=== PATIENT | female | born 1980 | race Caucasian/White ===

== ENCOUNTER 2018-12-08 13:57 | Day surgery (SDC) | payer BC, OTHER ==
[2018-12-01 13:09] VITALS: BMI 23.6
[~2018-12-08 13:57] MED LIST: BUPIVACAINE HCL/PF 2.5 MG/ML - 30 ML VIAL IJ ONE; BUPIVACAINE LIPOSOME/PF (EXPAREL) 266 MG/20 ML VIAL ONE; DEXAMETHASONE SOD PHOSPHATE 4 MG/1 ML VIAL ONE; EPINEPHrine/PF 1 MG/1 ML (1:1,000) AMPULE ONE; GLYCOPYRROLATE 0.2 MG/1 ML VIAL ONE; HEPARIN NA (PORCINE) 5,000 UNITS/ML 1ML VIAL ONE; HEPARIN NA (PORCINE) 5,000 UNITS/ML 1ML VIAL SQ ONE; HYDROmorphone HCL CARPU-JECT 2 MG/1 ML DISP.SYRIN IVPB PRN; HYDROmorphone HCL/PF 1 MG/ML AMP ONE; LIDOCAINE HCL/PF 2% SDV 5ML VIAL ONE; MIDAZOLAM HCL 2 MG/2 ML SINGLE DOSE VIAL ONE; NEOSTIGMINE METHYLSULFATE 0.5 MG/ML - 10 ML MDV ONE; ONDANSETRON 4 MG/2 ML VIAL ONE; PROMETHAZINE HCL 25 MG/1 ML VIAL IVPUSH PRN; PROPOFOL 20 ML ONE; ROCURONIUM BROMIDE 50 MG/5 ML VIAL ONE; ceFAZolin SODIUM 1 GM VIAL ONE; fentaNYL CITRATE 250 MCG/5 ML VIAL ONE; morphine SULFATE 4 MG/ML VIAL IVPUSH PRN
[2018-12-08] MEDS ORDERED: CYCLOBENZAPRINE HCL 5 MG TABLET PO PRN (14:00)
[2018-12-08] MEDS ORDERED: LACTATED RINGERS SOLUTION 1,000 ML IV SCH ×2 (14:00)
--- NOTE | 2018-12-08 14:02 | OP ---
Operative Note - Note: Operative Date: 12/08/18 Pre-Operative Diagnosis: abdominal deformity with hernia Operation: abdominoplasty with umbilical hernia repair Findings: umbilical hernia Post-Operative Diagnosis: Same as Pre-op Surgeon: Jim Rodriguez [employer] Supervisor: Ady Allen Anesthesia: General Operative Report Dictated: Yes
[2018-12-08] MEDS ORDERED: HYDROmorphone HCL 0.5 MG/0.5 ML SYRINGE ONE (14:23)
[2018-12-08] MEDS ORDERED: PROMETHAZINE HCL 25 MG/1 ML VIAL ONE (14:55)
[2018-12-08] MEDS: oxyCODONE HCL 5 MG TABLET PO PRN ×2 (18:40→22:24)
[2018-12-08] MEDS: CEFAZOLIN 1 GM/D5W 1 GM/50 ML BAG IVPB SCH (18:54)
[2018-12-08] MEDS: ONDANSETRON 4 MG/2 ML VIAL IVPB PRN (21:02)
[2018-12-09] MEDS: CEFAZOLIN 1 GM/D5W 1 GM/50 ML BAG IVPB SCH ×2 (02:11→09:52)
[2018-12-09] MEDS: oxyCODONE HCL 5 MG TABLET PO PRN ×3 (02:17→09:52)
[2018-12-09 07:13] VITALS: BP 108/62; PULSE 80; TEMP 98.5
--- NOTE | 2018-12-09 07:34 | PN ---
Progress Note (short form) - Note Progress Note: all ts viable, NANCY thin and functioning, using IS, VSS AF, ambulating, ag PO, urinating, pain well controlled OK for discharge
[2018-12-09] MEDS ORDERED: HEPARIN NA (PORCINE) 5,000 UNITS/ML 1ML VIAL SQ SCH (08:00)
[2018-12-09] MEDS ORDERED: SPIRONOLACTONE 25 MG TABLET (FP) PO SCH (10:00)
--- NOTE | 2018-12-09 10:18 | OP ---
Operative Note - Note: Operative Date: 12/08/18 Pre-Operative Diagnosis: umbilical hernia Operation: repair umbilical hernia Findings: 1.5 cm. defect at the umbilicus Post-Operative Diagnosis: Same as Pre-op Surgeon: Ady Allen Human Resources Benefits Manager: Jim Rodriguez Anesthesiologist/SCOURING PADS SUPERVISOR: Sami Vaughn Anesthesia: General Specimens Removed: none Estimated Blood Loss (mls): 0
[2018-12-09] MEDS: ONDANSETRON 4 MG/2 ML VIAL IVPB PRN (10:23)
--- NOTE | 2018-12-10 10:00 | OP ---
DATE OF OPERATION: 12/08/2018 TITLE OF PROCEDURE: Abdominoplasty with bilateral flank liposuction. ATTENDING SURGEON: Jim Jiménez MD SENIOR ADVOCATE: Ady Allen MD It should be noted that a separate procedure, an umbilical hernia was performed by Dr. Ady Allen. It will be dictated separately by him. PREOPERATIVE DIAGNOSIS: Abdominal deformity with severe diastasis recti. . POSTOPERATIVE DIAGNOSIS: Abdominal deformity with severe diastasis recti. ANESTHESIA: General endotracheal anesthesia. DESCRIPTION OF PROCEDURE: The patient was given 5000 units of subcutaneous heparin in the holding area. All risks, benefits, and alternatives as well as limitations of the operation were discussed at length. Patient understands and agreed to proceed. She was marked in a standing position awake and aware of all incisions and resulting scars. The patient was given MICAH hose and sequential compression stockings as well as 5000 units of subcutaneous heparin. She was brought to the operating room and placed in the supine position. Her position was carefully checked by surgical and anesthesia teams, and all appropriate padding was used. The patient was given a Vergara catheter after induction of general anesthesia. She was then prepped and draped in standard surgical fashion. Patient was given 2 g of Ancef preoperatively. A time-out was called. Patient, procedure, side and sites were verified. At this point, Dr. Allen and I made the inferior pannicular incision, and dissection carried down to the level of the abdominal wall fascia. Dissection was then carried along the abdominal wall fascia, ligating perforating blood vessels up to the level of the umbilicus. The umbilicus was then circumferentially incised, developed on a very wide fibrofatty stalk to be allowed to provide blood supply to the umbilicus despite dissection for the umbilical hernia repair. Dissection was then continued along the abdominal wall fascia to the xiphoid process and the midline costal margins bilaterally. It should be noted that very severe midline diastasis was noted with significant attenuation of the anterior abdominal wall fascia in between the 2 medial borders of the rectus abdominis. At this point, with the hernia freely palpable, Dr. Allen performed the hernia repair as described in his operative note. At the completion of this hernia repair, the umbilicus was pink and viable. Continuation of my portion of the operation was as follows. Midline plication was then performed in several layers both above and below the umbilicus. The first of said layers was with a series of interrupted buried No. 1 Prolene figure-of-8 sutures. Then, 2 separate layers of running locking No. 1Prolene sutures were performed. Several interrupted 0 Prolene figure-of-8 were used to reinforce the repair. The end-point was a smooth even tension across the abdominal wall. It should be noted that the patient had a significant and notable scoliosis preoperatively. Her umbilicus was not midline preoperatively. Attempt was made to bring the umbilicus more midline, but this was still imperfect. This continuous undermining was then required given the extent of the plication in order to not have tethering and distortion of the upper abdominal skin. Once this was completed, an end-point of smooth, even upper abdominal contour was noted. The patient was brought to the 30-degree flexed position where excess skin and fat was able to be transected. There was excellent bright red bleeding from the most distal portions of the flap. The skin was then tailor-tacked. Hemostasis was meticulously achieved, and the markings were made for umbilical translocation. Umbilical translocation was made through a narrow oval pattern defect in the abdominoplasty flap. The umbilicus was sighted and translocated. It was inset with a series of interrupted 3-0 Biosyn buried deep dermal suture followed by a combination of running and interrupted 4-0 and 5-0 nylon suture. Size 10 flat NANCY drains were then used, the left drain along the inferior recess of the wound, the right drain in the superior recess of the wound, drains secured with 2-0 silk drain sutures. Closure was then performed of the abdominoplasty flap with a series of interrupted 2-0 Vicryl superficial fascial system Scarpas layer sutures followed by a series of interrupted buried deep dermal 3-0 Monocryl sutures followed by a running 3-0 V-Loc mid dermal suture. Several 5-0 nylon sutures were used to perfect the closure. All tissues were pink and viable at the end of the procedure. Dressings were applied with Steri-Strips, 4x4 gauze, ABD gauze, and an abdominal binder. Patient was woken from anesthesia, maintained a flexed position, transferred to her hospital bed and to recovery without complications. It should be noted prior to final closure, bilateral flank liposuction was performed. A total of 300 mL of wetting solution was infiltrated into each of the flanks. The wetting solution was a liter of normal saline with 1 ampule of epinephrine; no lidocaine was used. The full 15 minutes was awaited before liposuction was performed in the SAFE technique with pre- and post-tunneling. Liposuction was performed with a 4 mm cannula in the Gritness system. End-points were smooth even contour. The lipoaspirates were 200 mL of lipoaspirate on either side. It should also be noted that after the plication, the patients rectus abdominis muscle and the lateral extents of the incisions were injected with a total mixture of 20 mL of Exparel and 30 mL of 0.25% Marcaine plain. This was done prior to the final closure. JIM JIMÉNEZ M.D. [id number]
--- NOTE | 2018-12-10 14:53 | PATH ---
Surgical Pathology Report Patient Name: RIGO SARGENT Med. Rec. #: [id number] /Age/Gender: 1980 (Age: 38) / F Account: [id number] Location: [facility] Taken: 12/08/2018 Received: 12/08/2018 Reported: 12/10/2018 Physicians: Jim Rodriguez Specimen(s) Received ABDOMINAL SKIN TISSUE Clinical History Umbilical hernia Final Diagnosis Abdominal skin and tissue, abdominoplasty: Skin and adipose tissue, as described (gross examination only). Electronically Signed April Cordero M.D. Gross Description Received in formalin labeled "abdominal skin and tissue" is a 1138 g, 28.0 x 21.0 x 3.5 cm aggregate of 2 acosta, triangular, unremarkable portions of skin with underlying soft tissue. The specimens are unoriented. Sectioning reveals unremarkable yellow, lobulated adipose tissue. No lesions are identified. No sections are submitted, gross only. /12/09/2018 saudi/12/09/2018
--- NOTE | 2018-12-15 21:01 | OP ---
DATE OF OPERATION: 12/09/2018 PREOPERATIVE DIAGNOSIS: Umbilical hernia. POSTOPERATIVE DIAGNOSIS: Umbilical hernia. PROCEDURE: Repair of umbilical hernia. SURGEON: Ady Allen MD WINDOW MACHINE OPERATOR: Jim Rodriguez MD ANESTHESIA: General. OPERATIVE FINDINGS: There was a preoperative umbilical hernia, which at the time of exploration during an abdominoplasty and liposuction being performed by Dr. Rodriguez, was noted to be approximately a 1.5-cm defect in the fascia. The rest of the findings and the abdominoplasty and liposuction will be dictated by Dr. Rodriguez. PROCEDURE: After incision of the lower skin flap and the flap raised by Dr. Rodriguez and the umbilicus isolated by him, intraoperative exam revealed the previously noted findings. To preserve vascularity to the umbilical stalk, the hernia sac was not opened, nor was the umbilicus disconnected from the defect in the fascia. At this point, a single 0 Prolene [id number] suture was placed to close the defect at the umbilicus. At this point, the remainder of the procedure was turned back over to Dr. Rodriguez, the primary operating surgeon, for the abdominoplasty and liposuction. Estimated blood loss for my portion of the procedure: None. Replacement: Crystalloid. Drains: None for my portion of the procedure. I, Ady Allen, was physically present in the operating room from the time the patient was placed on the operating room table until I completed my portion [place] the [place] [id number] MTDD
== END 2018-12-09 11:23 | disposition home or self-care (01) ==
LOC: FASUSAT 13:57 → FM/S 13:57 → FASUSAT 12-09 11:23
PROVIDERS: ATTEND Plastic Surgery
PROC: 0J083ZZ Alteration of Abdomen Subcutaneous Tissue and Fascia, Percutaneous Approach (ICD-10-PCS; 2018-12-08)
PROC: 0J080ZZ Alteration of Abdomen Subcutaneous Tissue and Fascia, Open Approach (ICD-10-PCS; principal; 2018-12-08 09:45)
PROC: 0WQF0ZZ Repair Abdominal Wall, Open Approach (ICD-10-PCS; 2018-12-08 09:45)
DX: Z41.1 Encounter for cosmetic surgery (principal); K42.9 Umbilical hernia without obstruction or gangrene
CPT/HCPCS: 84703; 88300-TC; 94760; J1644